=== PATIENT | male | born 1995 | race Two or more races ===

== ENCOUNTER 2018-02-15 19:14 | Emergency (ER) | payer BC, MEDICAID, OTHER ==
[~2018-02-15] VITALS: Ht 167.6 cm; Wt 58.1 kg
[2018-02-15 19:26] VITALS: BP 126/69
--- NOTE | 2018-02-15 19:35 | NUR ---
ER MD AT BEDSIDE TO EVAL PT WITH ORDERS RECEIVED. URINE SAMPLE COLLECTED AND SENT TO LAB.
[2018-02-15 19:50] LABS: APPEARANCE,URINE Clear (CLEAR); BILIRUBIN,URINE Negative (NEGATIVE); BLOOD, URINE Trace-intact Ery/uL (NEGATIVE); COLOR,URINE Yellow (YELLOW); KETONES,URINE Trace (NEGATIVE); LEUKOCYTE ESTERASE ,URINE Negative (NEGATIVE); NITRITE, URINE Negative (NEGATIVE); PROTEIN,URINE Trace mg/dl (NEGATIVE); UGLUCOSE Negative (NEGATIVE); UROBILINOGEN,URINE 0.2 EU/dL (0.2)
--- NOTE | 2018-02-15 19:53 | NUR ---
Omer gao in ED - 02/15/18 at 2013 by CYNTHIA CALLED CAREGIVER AND LEFT A VOICEMAIL
[2018-02-15] MEDS ORDERED: AZITHROMYCIN 250 MG TABLET ONE (20:14)
[2018-02-15] MEDS ORDERED: CEFTRIAXONE 1 G VIAL ONE (20:14)
[2018-02-15] MEDS ORDERED: LIDOCAINE /MPF 1% VIAL 5 ML VIAL ONE (20:14)
[2018-02-15] MEDS ORDERED: CEFTRIAXONE 1 G VIAL IM ONE (20:30)
[2018-02-15] MEDS ORDERED: AZITHROMYCIN 250 MG TABLET PO ONE (20:30)
[2018-02-15 20:44] LABS: WBC,URINE 1-2/HPF /HPF (0-3)
[2018-02-15 20:45] LABS: BACTERIA,URINE Rare /HPF (None Seen); MUCUS,URINE Few /LPF (None Seen); SQUAMOUS EPITHELIAL CELL,UR Rare /HPF (None Seen); URINE AMORPHOUS URATE Few /HPF (None Seen)
== END 2018-02-15 20:30 | disposition home or self-care (01) ==
LOC: ER 19:15
DX: N34.2 Other urethritis (principal); F10.10 Alcohol abuse, uncomplicated; F17.200 Nicotine dependence, unspecified, uncomplicated
CPT/HCPCS: 81001; 96372; 99283; A4606; J0696; J3490; Z7610; 81000-TC